=== PATIENT | male | born 1990 | race Caucasian/White ===

== ENCOUNTER 2017-06-02 17:48 | Emergency (ER) | payer OTHER ==
[~2017-06-02] VITALS: Ht 177.8 cm; Wt 87.2 kg
[2017-06-02 17:50] VITALS: BP 138/84
[2017-06-02] MEDS ORDERED: LIDOCAINE 1%, 20ML ONE (18:10)
[2017-06-02] MEDS ORDERED: BACITRACIN ZINC OINT 500U/GM, 0.9 GM ONE (19:22)
== END 2017-06-02 19:51 | disposition home or self-care (01) ==
LOC: ED 19:40
DX: S91.311A Laceration without foreign body, right foot, initial encounter (principal); W26.8XXA Contact with other sharp object(s), not elsewhere classified, initial encounter; Y93.89 Activity, other specified; Y92.828 Other wilderness area as the place of occurrence of the external cause; Y99.8 Other external cause status
CPT/HCPCS: 12002